=== PATIENT | male | born 1965 | race Caucasian/White ===

== ENCOUNTER 2017-04-12 15:39 | Emergency (ER) | payer SELFPAY ==
[2017-04-12 15:47] VITALS: BP 155/85; PULSE 98; TEMP 99; BMI 25.0
[2017-04-12] MEDS ORDERED: DIPHTH,PERTUSS(ACELL),TET 0.5 ML DISP.SYRIN IM ONE (16:55)
[2017-04-12] MEDS ORDERED: LIDOCAINE 1%/EPI 1:100000 (20 ML MULTI DOSE VIAL) ONE (16:56)
--- NOTE | 2017-04-12 17:17 | PDOC ---
History of Present Illness - General Chief Complaint: Injury Stated Complaint: INJURY Time Seen by Provider: 04/12/17 16:42 - History of Present Illness Initial Comments: 04/12/17 17:15 CHIEF COMPLAINT: laceration to R arm HISTORY OF PRESENT ILLNESS: 51 yo M with hx of IDDM presents to fast track with laceration to R forearm. Patient states "I was working and accidentally cut myself with a tool." Patient does not remember the last time he received a tetanus shot. No recent travel or sick contacts. PAST MEDICAL HISTORY: diabetes FAMILY HISTORY: Denies SOCIAL HISTORY: Denies tobacco, alcohol, illicit drug use. SURGICAL HISTORY: Denies ALLERGIES: No known drug allergies REVIEW OF SYSTEMS General/Constitutional: Denies fever or chills. Gastrointestinal: Denies nausea, vomiting, diarrhea. Musculoskeletal: Denies joint or muscle swelling or pain. Denies neck or back pain. Skin: laceration to R arm. PHYSICAL EXAM General Appearance: Well-appearing, appropriately dressed. No apparent distress. HEENT: EOMI, PERRLA. No photophobia, scleral icterus. Respiratory/Chest: Lungs CTAB. Cardiovascular: RRR. S1, S2. Musculoskeletal/Extremities: Laceration to volar aspect of R forearm, no tendon involvement, patient with FROM of wrist and fingers. Normal inspection. FROM of all extremities, normal capillary refill. Pelvis Stable. No CVA tenderness. No tenderness to extremities, pedal edema, swelling, erythema or deformity. Integumentary: Appropriate color, dry, warm. No cyanosis, erythema, jaundice or rash Neurologic: aquatics instructor II-XII intact. Fully oriented, alert. Appropriate mood/affect. Motor strength 5/5. No appreciable EOM palsy, facial droop or sensory deficit. Past History - Past Medical History Allergies/Adverse Reactions: Allergies Allergy/AdvReac Type Severity Reaction Status Date / Time No Known Allergies Allergy Verified 04/12/17 15:46 Home Medications: Ambulatory Orders Sulfamethoxazole/Trimethoprim [Bactrim Ds -] 1 tab PO BID #14 tablet 04/12/17 Diabetes: Yes HTN: Yes (not on meds) - Suicide/Smoking/Psychosocial Hx Smoking History: Never smoked Information on smoking cessation initiated: No Hx Alcohol Use: No Drug/Substance Use Hx: No Substance Use Type: None *Physical Exam - Vital Signs Last Vital Signs Temp Pulse Resp BP Pulse Ox 99 F 98 H 18 155/85 99 04/12/17 15:45 04/12/17 15:45 04/12/17 15:45 04/12/17 15:45 04/12/17 15:45 Procedures - Consent Consent obtained: Verbal - Laceration/Wound Repair Right Volar Arm Wound Length: to 2.5 cm Wound Explored: clean, no foreign body present Wound's Depth, Shape: superficial, linear Irrigated w/ Saline: Yes Betadine Prep: Yes Anesthesia: 1% Lidocaine w/ Epi Amount of Anesthetic (ccs): 2 Wound Repaired With: Sutures Suture Size/Type: 5:0 Number of Sutures: 3 Layer Closure: No Sterile Dressing Applied: Yes (bacitracin, kerlix dressing) Medical Decision Making - Medical Decision Making 04/12/17 17:19 51 yo M with hx of IDDM presents to fast track with laceration to R forearm -tdap -lac repair (see procedure note) keflex rx sent to pharm for prophylaxis as patient is diabetic post lac repair instructions given, advised pt to return in 10 days for suture removal and of signs and symptoms for return to ER *DC/Admit/Observation/Transfer Diagnosis at time of Disposition: Laceration - Discharge Dispostion Disposition: HOME Condition at time of disposition: Stable Admit: No - Prescriptions Prescriptions: Sulfamethoxazole/Trimethoprim [Bactrim Ds -] 1 tab PO BID #14 tablet - Patient Instructions Printed Discharge Instructions: DI for Laceration Repair Additional Instructions: Please take medication as prescribed. Please keep your wound clean and dry for the next 24 hours. Afterwards you may wash with mild soap and water. If you develop any redness, swelling, warmth, or pain to your wound, or you develop any fever, chills, vomiting, diarrhea, or any new or worsening symptoms, please return to the ER. Por favor, tome los medicamentos segn lo prescrito. Mantenga la herida limpia y seca por las siguientes 24 horas. Despus puede lavarse con jabn suave y agua. Si desarrolla enrojecimiento, hinchazn, calor o dolor en la herida, o si presenta fiebre, escalofros, vmitos, diarrea o cualquier sntoma nuevo o que empeora, por favor regrese a la symone de emergencias. Print Language: TUNISIAN
== END 2017-04-12 17:28 | disposition home or self-care (01) ==
LOC: JERFT 15:39
PROC: 3E0234Z Introduction of Serum, Toxoid and Vaccine into Muscle, Percutaneous Approach (ICD-10-PCS; principal; 2017-04-12)
PROC: 0HQBXZZ Repair Right Upper Arm Skin, External Approach (ICD-10-PCS; 2017-04-12)
DX: S51.811A Laceration without foreign body of right forearm, initial encounter (principal); E11.9 Type 2 diabetes mellitus without complications; W27.8XXA Contact with other nonpowered hand tool, initial encounter; Y93.89 Activity, other specified; Y92.9 Unspecified place or not applicable; Y99.0 Civilian activity done for income or pay
CPT/HCPCS: 90715; 99281-25

== ENCOUNTER 2017-04-26 18:55 | Emergency (ER) | payer SELFPAY ==
[2017-04-26 19:19] VITALS: BP 149/86; PULSE 74; TEMP 98.2; BMI 23.3
--- NOTE | 2017-04-26 19:50 | PDOC ---
Suture Removal/Wound Check HPI - History of Present Illness Chief Complaint: Suture/Staple Removal(Here) Stated Complaint: SUTURE REMOVAL Time Seen by Provider: 04/26/17 19:48 History Source: Yes: Patient Exam Limitations: Yes: No Limitations [facility] Date of Last ED visit: 04/12/17 - Previous ED Treatment Type of procedure performed on last visit: Yes: Laceration Repair (right inner forearm with 3 simple sutures) Tetanus Immunization: Yes: Up to Date Past History - Past Medical History Allergies/Adverse Reactions: Allergies Allergy/AdvReac Type Severity Reaction Status Date / Time No Known Allergies Allergy Verified 04/26/17 19:16 Home Medications: Ambulatory Orders NK [No Known Home Medication] 04/26/17 Diabetes: Yes HTN: Yes (not on meds) - Suicide/Smoking/Psychosocial Hx Smoking History: Never smoked Hx Alcohol Use: No Drug/Substance Use Hx: No Substance Use Type: None Suture Removal/Wound Check PE - Physical Exam Laceration/Wound Check Symptoms: reports: None Comments: 04/26/17 19:49 right inner forearm with 3 simple sutures CDI well healed *Review of Systems - Review of Systems Able to Perform ROS?: Yes Constitutional: No: Symptoms Reported HEENTM: No: Symptoms Reported Respiratory: No: Symptoms reported Cardiac (ROS): No: Symptoms Reported ABD/GI: No: Symptoms Reported Integumentary: Yes: Symptoms Reported Procedures - Additional Procedures Progress: 04/26/17 19:49 3 simple interrupted sutures removed well healed well approximated Medical Decision Making - Medical Decision Making 04/26/17 19:49 suture removal right inner forearm *DC/Admit/Observation/Transfer Diagnosis at time of Disposition: Visit for suture removal - Discharge Dispostion Disposition: HOME Condition at time of disposition: Improved - Patient Instructions Printed Discharge Instructions: DI for Suture Removal Additional Instructions: you may resume regular activity and care
== END 2017-04-26 19:50 | disposition home or self-care (01) ==
LOC: JERFT 18:55
DX: Z48.02 Encounter for removal of sutures (principal)
CPT/HCPCS: 99281-25

== ENCOUNTER 2018-04-20 15:00 | Emergency (ER) | payer OTHER ==
[2018-04-20 15:07] VITALS: BP 167/95; PULSE 108; TEMP 98.8; BMI 24.2
[2018-04-20] MEDS ORDERED: diphenhydrAMINE HCL 25 MG CAPSULE (FP) PO ONE ×2 (15:41→15:44)
--- NOTE | 2018-04-20 15:45 | PDOC ---
History of Present Illness - General Chief Complaint: Rash Stated Complaint: ITCHING RASH Time Seen by Provider: 04/20/18 15:31 History Source: Patient Exam Limitations: No Limitations - History of Present Illness Initial Comments: 04/20/18 15:41 HISTORY OF PRESENT ILLNESS: 52-year-old male past medical history of IDDM presents emergency departments with pruritus to his back for the past 3-4 weeks. Patient states constant but has not taken anything or seen his primary doctor for evaluation. He denies any change in soaps, shampoos, lotions, medications. Patient denies any rashes, fevers. No recent travel or sick contacts. PAST MEDICAL HISTORY: IDDM SURGICAL HISTORY: Denies ALLERGIES: No known drug allergies REVIEW OF SYSTEMS General/Constitutional: Denies fever or chills. Denies weakness, weight change. HEENT: Denies change in vision. Denies ear pain or discharge. Denies sore throat. Cardiovascular: Denies chest pain or shortness of breath. Respiratory: Denies cough, wheezing, or hemoptysis. Gastrointestinal: Denies nausea, vomiting, diarrhea or constipation. Denies rectal bleeding. Genitourinary: Denies dysuria, frequency, or change in urination. Musculoskeletal: Denies joint or muscle swelling or pain. Denies neck or back pain. Skin and breasts: Itching to back. Neurologic: Denies headache, vertigo, loss of consciousness, or loss of sensation. Psychiatric: Denies depression or anxiety. Endocrine: Denies increased thirst. Denies abnormal weight change. Hematologic/Lymphatic: Denies anemia, easy bleeding, or history of blood clots. Allergic/Immunologic: Denies hives or skin allergy. Denies latex allergy. PHYSICAL EXAM General Appearance: Well-appearing, appropriately dressed. No apparent distress , no intoxication. HEENT: EOMI, PERRLA, normal ENT inspection, normal voice, TMs normal, pharynx normal. No conjunctival pallor. No photophobia, scleral icterus. Neck: Supple. Trachea midline. No tenderness, rigidity, carotid bruit, stridor , lymphadenopathy, or thyromegaly. Respiratory/Chest: Lungs CTAB. No shortness of breath, chest tenderness, respiratory distress, accessory muscle use. No crackles, rales, rhonchi, stridor , wheezing, dullness Cardiovascular: RRR. S1, S2. No JVD, murmur, bradycardia, tachycardia. Vascular Pulses: Dorsalis-Pedis (R): 2+, Dorsalis-Pedis (L): 2+ Gastrointestinal/Abdominal: Normal bowel sounds. Abdomen soft, non-distended. No tenderness or rebound tenderness. No organomegaly, pulsatile mass, guarding, hernia, hepatomegaly, splenomegaly. Lymphatic: No adenopathy, tenderness. Musculoskeletal/Extremities: Normal inspection. FROM of all extremities, normal capillary refill. Pelvis Stable. No CVA tenderness. No tenderness to extremities, pedal edema, swelling, erythema or deformity. Integumentary: No rash present over the back. Patient appears slightly jaundiced but may be normal skin tone. Consistent throughout his body patient denies any change. Neurologic: recapper II-XII intact. Fully oriented, alert. Appropriate mood/affect. Motor strength 5/5. No appreciable EOM palsy, facial droop or sensory deficit. Past History - Past Medical History Allergies/Adverse Reactions: Allergies Allergy/AdvReac Type Severity Reaction Status Date / Time No Known Allergies Allergy Verified 04/26/17 19:16 Home Medications: Ambulatory Orders NK [No Known Home Medication] 04/26/17 Canagliflozin [Invokana] 100 mg PO ASDIR 04/20/18 COPD: No Diabetes: Yes HTN: Yes (not on meds) - Immunization History Immunization Up to Date: Yes - Suicide/Smoking/Psychosocial Hx Smoking History: Never smoked Information on smoking cessation initiated: No Hx Alcohol Use: No Drug/Substance Use Hx: No Substance Use Type: None *Physical Exam - Vital Signs Last Vital Signs Temp Pulse Resp BP Pulse Ox 98.8 F 108 H 16 167/95 99 04/20/18 15:04 04/20/18 15:04 04/20/18 15:04 04/20/18 15:04 04/20/18 15:04 ED Treatment Course - LABORATORY CBC & Chemistry Diagram: 04/20/18 15:48 04/20/18 15:48 Medical Decision Making - Medical Decision Making 04/20/18 15:45 A/P: 52-year-old male with pruritus to back Questionable mild jaundice with consistence home throughout his body-patient denies any change in appearance of his skin color No scleral icterus This patient was taken elbow, and insulin suspicion for uremia exists Labs, urine, Benadryl, reassess 04/20/18 18:36 Patient admits to drinking regular Pepsi-Cola prior to evaluation emergency department. Repeat fingerstick after receiving 1 L of fluids and 6 units of insulin was 354. Laboratory testing reveals patient's kidney function is within normal limits but does have a mildly elevated alkaline phosphatase. Patient is no longer itchy after receiving Benadryl. I will discharge the patient home to follow-up with his primary doctor. *DC/Admit/Observation/Transfer Diagnosis at time of Disposition: Hyperglycemia, Pruritus - Discharge Dispostion Disposition: HOME Condition at time of disposition: Stable Decision to Admit order: No - Referrals Referrals: Kingsley Coto [Primary Care Provider] - - Patient Instructions Additional Instructions: Make an appointment for evaluation with her primary doctor for possible change in your diabetes regimen. Avoid drinking regular sodas. Take Benadryl as needed for itching. Return to emergency department for any concerns. - Post Discharge Activity
[2018-04-20 16:14] LABS: BASO % 0.5 % (0-2.0); EOS % 1.6 % (0-4.5); HEMOGLOBIN 13.9 GM/dL (11.7-16.9); LYMPH % 34.7 % (8-40); MCH 31.1 pg (25.7-33.7); MCHC 33.8 g/dl (32.0-35.9); MEAN CELL VOLUME 92.2 fl (80-96); MEAN PLT VOLUME 10.6 fl (7.5-11.1); NEUT % 54.2 % (42.8-82.8); PLATELET COUNT 169 K/MM3 (134-434); RBC 4.45 M/mm3 (4.00-5.60); RDW 14.8 % (11.9-15.9); WHITE BLOOD COUNT 3.8 K/mm3 (4.0-10.0)
[2018-04-20 16:22] LABS: URINE APPEARANCE CLEAR; URINE BILIRUBIN NEGATIVE (<2.0 mg/dL); URINE COLOR COLORLESS; URINE GLUCOSE (UA) 3+ (NEGATIVE); URINE KETONE NEGATIVE (NEGATIVE); URINE LEUK ESTERASE NEGATIVE (NEGATIVE); URINE NITRITE NEGATIVE (NEGATIVE); URINE PROTEIN NEGATIVE (NEGATIVE); URINE UROBILINOGEN NEGATIVE mg/dL (0.2-1.0)
[2018-04-20 16:45] LABS: ALK PHOS 195 U/L (45-117); ANION GAP 9 MMOL/L (8-16); BILIRUBIN,TOTAL 0.3 mg/dL (0.2-1); BLOOD UREA NITROGEN 19 mg/dL (7-18); CALCIUM 9.4 mg/dL (8.5-10.1); CHLORIDE 100 mmol/L (98-107); CO2 27 mmol/L (21-32); CREATININE 1.1 mg/dL (0.55-1.3); POTASSIUM 4.1 mmol/L (3.5-5.1); SGOT/AST 22 U/L (15-37); SGPT/ALT 56 U/L (13-61); SODIUM 136 mmol/L (136-145); TOT PROT 8.1 g/dl (6.4-8.2)
[2018-04-20 16:49] LABS: GLUCOSE,RANDOM 523 mg/dL (74-106)
[2018-04-20] MEDS ORDERED: SODIUM CHLORIDE 1,000 ML IV STA (16:59)
[2018-04-20] MEDS ORDERED: INSULIN REGULAR HUMAN 100 UNITS/ML *VIAL SQ ONE (16:59)
[2018-04-20] MEDS ORDERED: INSULIN REGULAR HUMAN 100 UNITS/ML *VIAL ONE (17:23)
== END 2018-04-20 18:43 | disposition home or self-care (01) ==
LOC: JERFT 15:00
PROC: 3E0337Z Introduction of Electrolytic and Water Balance Substance into Peripheral Vein, Percutaneous Approach (ICD-10-PCS; principal; 2018-04-20)
PROC: 3E013VG Introduction of Insulin into Subcutaneous Tissue, Percutaneous Approach (ICD-10-PCS; 2018-04-20)
DX: E11.65 Type 2 diabetes mellitus with hyperglycemia (principal); Z79.84 Long term (current) use of oral hypoglycemic drugs; L29.8 Other pruritus
CPT/HCPCS: 36415; 80053; 81003; 82962; 85025; 96360; 96372; 99281-25; J7030

== ENCOUNTER 2019-10-14 02:56 | Inpatient (IN) | payer OTHER ==
[2019-10-14 03:37] LABS: BASO % 0.3 % (0-2.0); HEMATOCRIT 45.8 % (35.4-49); HEMOGLOBIN 15.1 GM/dL (11.7-16.9); LYMPH % 9.5 % (8-40); MCH 30.2 pg (25.7-33.7); MCHC 32.9 g/dl (32.0-35.9); MEAN CELL VOLUME 91.8 fl (80-96); MEAN PLT VOLUME 10.2 fl (7.5-11.1); MONO % 9.5 % (3.8-10.2); NEUT % 80.7 % (42.8-82.8); PLATELET COUNT 176 K/MM3 (134-434); RBC 4.99 M/mm3 (4.00-5.60); RDW 13.9 % (11.9-15.9); WHITE BLOOD COUNT 13.6 K/mm3 (4.0-10.0)
[2019-10-14 03:58] LABS: VENOUS PC02 24.1 mmHg (38-52)
[2019-10-14 03:59] LABS: VENOUS PO2 < 49 mmHg (28-48)
[2019-10-14 04:00] LABS: VENOUS BASE EXCESS -25.2 mmol/L (-2-2)
[2019-10-14 04:15] LABS: ALBUMIN 3.3 g/dl (3.4-5.0); BILIRUBIN,TOTAL 0.6 mg/dL (0.2-1); BLOOD UREA NITROGEN 12.7 mg/dL (7-18); CREATININE 1.3 mg/dL (0.55-1.3); POTASSIUM 4.1 mmol/L (3.5-5.1); TOT PROT 8.6 g/dl (6.4-8.2)
[2019-10-14 04:29] LABS: VENOUS PH 6.97 (7.31-7.41)
[2019-10-14] MEDS ORDERED: SODIUM CHLORIDE 0.9% 500 ML INFUS.BAG IV ONE ×2 (04:32)
[2019-10-14] MEDS ORDERED: INSULIN REGULAR HUMAN 100 UNITS/ML *VIAL IVPUSH ONE (04:34)
[2019-10-14] MEDS ORDERED: INSULIN REGULAR 100 UNITS in SODIUM CHLORIDE 99 ML IVPB SCH (04:45)
[2019-10-14] MEDS ORDERED: ONDANSETRON 4 MG/2 ML VIAL ONE (05:19)
[2019-10-14] MEDS: SODIUM CHLORIDE 0.45%/POT 20 MEQ/1,000 ML INFUS.BAG IV SCH (05:23)
[2019-10-14 05:29] LABS: EPI CELLS 20 /uL (0-25.1); HYALINE CASTS 6 /uL (0-3.1); URINE APPEARANCE CLEAR; URINE BACTERIA 13 /uL (0-1359); URINE BILIRUBIN NEGATIVE (NEGATIVE); URINE COLOR YELLOW; URINE GLUCOSE (UA) 3+ (NEGATIVE); URINE KETONE 4+ (NEGATIVE); URINE LEUK ESTERASE NEGATIVE (NEGATIVE); URINE NITRITE NEGATIVE (NEGATIVE); URINE PROTEIN 2+ (NEGATIVE); URINE UROBILINOGEN 0.2 mg/dL (0.2-1.0); URINE WBC 4 /uL (0-25.8)
[2019-10-14 05:33] LABS: URINE RBC 5 /uL (0-23.9)
[2019-10-14 06:03] LABS: MAGNESIUM 2.2 mg/dL (1.8-2.4)
[2019-10-14] MEDS: SODIUM CHLORIDE 1,000 ML with POTASSIUM CHLORIDE 20 MEQ IVPB SCH (08:21)
[2019-10-14] MEDS: ENOXAPARIN NA (PORCINE) 40 MG/0.4 ML DISP.SYRIN SQ SCH (11:23)
[2019-10-14 12:25] LABS: BLOOD UREA NITROGEN 12.4 mg/dL (7-18)
[2019-10-14 13:00] LABS: POTASSIUM 2.8 mmol/L (3.5-5.1)
[2019-10-14] MEDS ORDERED: POTASSIUM CHLORIDE TABS 20 MEQ TABLET.ER (FP) PO ONE ×2 (13:26→13:36)
[2019-10-14 14:22] LABS: BLOOD UREA NITROGEN 12.8 mg/dL (7-18); CALCIUM 8.4 mg/dL (8.5-10.1); CREATININE 0.8 mg/dL (0.55-1.3); POTASSIUM 3.5 mmol/L (3.5-5.1)
[2019-10-14] MEDS: CEFTRIAXONE 1 GM in DEXTROSE 5%-WATER - 50 ML IVPB SCH (15:14)
[2019-10-14] MEDS ORDERED: CEFTRIAXONE 1 GM/50 ML BAG ONE (15:17)
[2019-10-14 15:44] LABS: BLOOD UREA NITROGEN 12.1 mg/dL (7-18); CALCIUM 8.1 mg/dL (8.5-10.1); CREATININE 0.8 mg/dL (0.55-1.3); POTASSIUM 3.4 mmol/L (3.5-5.1)
[2019-10-14 20:42] VITALS: BMI 25.2
[2019-10-14] MEDS: INSULIN SLIDING SCALE (NOVOLOG) 1 VIAL SQ SCH (21:14)
[2019-10-14] MEDS: HYDROXYCHLOROQUINE SO4 200 MG TABLET (FP) PO SCH (21:15)
[2019-10-14] MEDS ORDERED: CHLORHEXIDINE GLUCONATE 4% CLEANSER FOR DECOLONIZATION TP SCH (22:00)
[2019-10-15] MEDS: INSULIN SLIDING SCALE (NOVOLOG) 1 VIAL SQ SCH ×4 (06:00→21:24)
[2019-10-15] MEDS: SODIUM CHLORIDE 0.45%/POT 20 MEQ/1,000 ML INFUS.BAG IV SCH (06:01)
[2019-10-15] MEDS: SODIUM CHLORIDE 1,000 ML with POTASSIUM CHLORIDE 20 MEQ IVPB SCH (06:01)
[2019-10-15] MEDS ORDERED: DEXTROSE 5%-WATER - 50 ML IVPB ONE (08:55)
[2019-10-15] MEDS ORDERED: cefTRIAXone SODIUM 1 GM VIAL ONE (08:55)
[2019-10-15 09:28] LABS: BASO % 0.1 % (0-2.0); HEMATOCRIT 37.2 % (35.4-49); HEMOGLOBIN 12.8 GM/dL (11.7-16.9); LYMPH % 5.2 % (8-40); MCH 29.9 pg (25.7-33.7); MCHC 34.5 g/dl (32.0-35.9); MEAN CELL VOLUME 86.6 fl (80-96); MONO % 6.5 % (3.8-10.2); NEUT % 88.2 % (42.8-82.8); PLATELET COUNT 141 K/MM3 (134-434); RDW 13.4 % (11.9-15.9); WHITE BLOOD COUNT 9.5 K/mm3 (4.0-10.0)
[2019-10-15] MEDS: ENOXAPARIN NA (PORCINE) 40 MG/0.4 ML DISP.SYRIN SQ SCH (09:47)
[2019-10-15] MEDS: HYDROXYCHLOROQUINE SO4 200 MG TABLET (FP) PO SCH ×2 (09:48→21:25)
[2019-10-15] MEDS: CEFTRIAXONE 1 GM in DEXTROSE 5%-WATER - 50 ML IVPB SCH (09:48)
[2019-10-15] MEDS: ZINC SULFATE 220 MG CAPSULE (FP) PO SCH (09:48)
[2019-10-15 10:14] LABS: ALBUMIN 2.4 g/dl (3.4-5.0); BILIRUBIN,TOTAL 0.3 mg/dL (0.2-1); BLOOD UREA NITROGEN 8.5 mg/dL (7-18); CALCIUM 8.3 mg/dL (8.5-10.1); CREATININE 0.8 mg/dL (0.55-1.3); MAGNESIUM 2.3 mg/dL (1.8-2.4); TOT PROT 6.6 g/dl (6.4-8.2)
[2019-10-15 10:35] LABS: PHOSPHOROUS 0.8 mg/dL (2.5-4.9); POTASSIUM 2.9 mmol/L (3.5-5.1)
[2019-10-15] MEDS ORDERED: NAPH,MB-DB/K PH,MBDB POWDER PACKET PO ONE ×2 (10:36→11:00)
[2019-10-15] MEDS ORDERED: INSULIN (NOVOLOG) ASPART 100 UNITS/ML 10ML VIAL ONE ×3 (10:38→21:01)
[2019-10-15] MEDS: INSULIN (LEVEMIR) 100 UNITS/ML UNITS SQ SCH (10:56)
[2019-10-15] MEDS: KCL 10 MEQ IVPB 10 MEQ/100 ML INFUS.BAG IVPB SCH ×3 (11:02→14:44)
[2019-10-15] MEDS: MUPIROCIN 2% TOPICAL OINTMENT FOR DECOLONIZATION NS SCH ×2 (12:01→12:02)
[2019-10-15] MEDS ORDERED: KCL 10 MEQ IVPB 10 MEQ/100 ML INFUS.BAG IVPB SCH (14:30)
[2019-10-15] MEDS ORDERED: INSULIN (LEVEMIR) 100 UNITS/ML UNITS SQ ONE (18:45)
[2019-10-15] MEDS: NAPH,MB-DB/K PH,MBDB POWDER PACKET PO SCH (21:24)
[2019-10-16] MEDS: INSULIN (LEVEMIR) 100 UNITS/ML UNITS SQ SCH (06:29)
[2019-10-16] MEDS: NAPH,MB-DB/K PH,MBDB POWDER PACKET PO SCH ×3 (06:30→21:46)
[2019-10-16] MEDS: INSULIN SLIDING SCALE (NOVOLOG) 1 VIAL SQ SCH ×4 (06:32→21:52)
[2019-10-16] MEDS ORDERED: INSULIN (LEVEMIR) 100 UNITS/ML UNITS SQ ONE (06:55)
[2019-10-16 08:33] LABS: ALBUMIN 2.3 g/dl (3.4-5.0); BILIRUBIN,TOTAL 0.5 mg/dL (0.2-1); BLOOD UREA NITROGEN 7.6 mg/dL (7-18); CALCIUM 8.1 mg/dL (8.5-10.1); CREATININE 0.6 mg/dL (0.55-1.3); MAGNESIUM 2.4 mg/dL (1.8-2.4); PHOSPHOROUS 1.9 mg/dL (2.5-4.9); TOT PROT 6.7 g/dl (6.4-8.2)
[2019-10-16] MEDS ORDERED: cefTRIAXone SODIUM 1 GM VIAL ONE (08:41)
[2019-10-16] MEDS ORDERED: DEXTROSE 5%-WATER - 50 ML IVPB ONE (08:41)
[2019-10-16 08:55] LABS: POTASSIUM 2.6 mmol/L (3.5-5.1)
[2019-10-16] MEDS: ZINC SULFATE 220 MG CAPSULE (FP) PO SCH (10:05)
[2019-10-16] MEDS: ENOXAPARIN NA (PORCINE) 40 MG/0.4 ML DISP.SYRIN SQ SCH (10:05)
[2019-10-16] MEDS: HYDROXYCHLOROQUINE SO4 200 MG TABLET (FP) PO SCH ×2 (10:06→21:46)
[2019-10-16] MEDS: CEFTRIAXONE 1 GM in DEXTROSE 5%-WATER - 50 ML IVPB SCH (10:06)
[2019-10-16] MEDS: KCL 10 MEQ IVPB 10 MEQ/100 ML INFUS.BAG IVPB SCH ×3 (10:49→13:11)
[2019-10-16] MEDS ORDERED: guaiFENesin/D-METHORPHAN HB 10 ML UNIT-DOSE CUPS PO PRN (13:06)
[2019-10-16] MEDS ORDERED: ACETAMINOPHEN 325 MG TABLET (FP) PO PRN (13:09)
[2019-10-16 18:12] LABS: BLOOD UREA NITROGEN 8.1 mg/dL (7-18); CALCIUM 8.4 mg/dL (8.5-10.1); CREATININE 0.5 mg/dL (0.55-1.3)
[2019-10-16 18:13] LABS: POTASSIUM 2.9 mmol/L (3.5-5.1)
[2019-10-16] MEDS ORDERED: POTASSIUM CHLORIDE TABS 20 MEQ TABLET.ER (FP) PO ONE (18:17)
[2019-10-16] MEDS: ASCORBIC ACID 500 MG TABLET (FP) PO SCH (21:46)
[2019-10-17] MEDS: INSULIN (LEVEMIR) 100 UNITS/ML UNITS SQ SCH (06:16)
[2019-10-17] MEDS: NAPH,MB-DB/K PH,MBDB POWDER PACKET PO SCH ×3 (06:16→21:20)
[2019-10-17] MEDS: INSULIN SLIDING SCALE (NOVOLOG) 1 VIAL SQ SCH ×4 (06:20→21:19)
[2019-10-17 09:45] LABS: CALCIUM 8.5 mg/dL (8.5-10.1); CREATININE 0.5 mg/dL (0.55-1.3)
[2019-10-17] MEDS ORDERED: cefTRIAXone SODIUM 1 GM VIAL ONE (10:14)
[2019-10-17] MEDS ORDERED: DEXTROSE 5%-WATER - 50 ML IVPB ONE (10:15)
[2019-10-17] MEDS: ENOXAPARIN NA (PORCINE) 40 MG/0.4 ML DISP.SYRIN SQ SCH (10:23)
[2019-10-17] MEDS: ASCORBIC ACID 500 MG TABLET (FP) PO SCH ×2 (10:23→21:20)
[2019-10-17] MEDS: CHOLECALCIFEROL (VIT D3) 1,000 UNIT (25 MCG) TABLET PO SCH (10:23)
[2019-10-17] MEDS: CEFTRIAXONE 1 GM in DEXTROSE 5%-WATER - 50 ML IVPB SCH (10:23)
[2019-10-17] MEDS: ZINC SULFATE 220 MG CAPSULE (FP) PO SCH (10:24)
[2019-10-17] MEDS: HYDROXYCHLOROQUINE SO4 200 MG TABLET (FP) PO SCH ×2 (10:24→21:21)
[2019-10-17 10:26] LABS: POTASSIUM 2.9 mmol/L (3.5-5.1)
[2019-10-17] MEDS: SODIUM CHLORIDE 0.9%/KCL 20 MEQ/1,000 ML INFUS.BAG IV SCH (12:15)
[2019-10-17] MEDS: KCL 10 MEQ IVPB 10 MEQ/100 ML INFUS.BAG IVPB SCH ×3 (12:17→17:17)
[2019-10-18] MEDS: NAPH,MB-DB/K PH,MBDB POWDER PACKET PO SCH ×3 (05:56→21:51)
[2019-10-18] MEDS: INSULIN (LEVEMIR) 100 UNITS/ML UNITS SQ SCH (06:00)
[2019-10-18] MEDS: INSULIN SLIDING SCALE (NOVOLOG) 1 VIAL SQ SCH ×4 (06:00→21:58)
[2019-10-18] MEDS: ASCORBIC ACID 500 MG TABLET (FP) PO SCH ×2 (10:01→21:51)
[2019-10-18] MEDS: ENOXAPARIN NA (PORCINE) 40 MG/0.4 ML DISP.SYRIN SQ SCH (10:01)
[2019-10-18] MEDS: ZINC SULFATE 220 MG CAPSULE (FP) PO SCH (10:01)
[2019-10-18] MEDS: HYDROXYCHLOROQUINE SO4 200 MG TABLET (FP) PO SCH ×2 (10:01→21:50)
[2019-10-18] MEDS: CHOLECALCIFEROL (VIT D3) 1,000 UNIT (25 MCG) TABLET PO SCH (10:01)
[2019-10-18] MEDS: SODIUM CHLORIDE 0.9%/KCL 20 MEQ/1,000 ML INFUS.BAG IV SCH (11:51)
[2019-10-18 11:52] LABS: BLOOD UREA NITROGEN 5.6 mg/dL (7-18); CALCIUM 7.9 mg/dL (8.5-10.1); CREATININE 0.5 mg/dL (0.55-1.3); POTASSIUM 3.1 mmol/L (3.5-5.1)
[2019-10-18] MEDS ORDERED: POTASSIUM CHLORIDE TABS 20 MEQ TABLET.ER (FP) PO ONE (12:12)
[2019-10-19] MEDS: NAPH,MB-DB/K PH,MBDB POWDER PACKET PO SCH (06:26)
[2019-10-19] MEDS: INSULIN (LEVEMIR) 100 UNITS/ML UNITS SQ SCH ×2 (06:26→12:55)
[2019-10-19] MEDS: INSULIN SLIDING SCALE (NOVOLOG) 1 VIAL SQ SCH ×4 (06:26→21:36)
[2019-10-19 09:27] LABS: BASO % 0.4 % (0-2.0); EOS % 0.1 % (0-4.5); HEMATOCRIT 36.5 % (35.4-49); HEMOGLOBIN 12.6 GM/dL (11.7-16.9); LYMPH % 13.1 % (8-40); MCH 29.7 pg (25.7-33.7); MCHC 34.4 g/dl (32.0-35.9); MEAN CELL VOLUME 86.3 fl (80-96); MEAN PLT VOLUME 8.6 fl (7.5-11.1); MONO % 17.3 % (3.8-10.2); NEUT % 69.1 % (42.8-82.8); PLATELET COUNT 196 K/MM3 (134-434); RBC 4.23 M/mm3 (4.00-5.60); RDW 13.3 % (11.9-15.9)
[2019-10-19 09:56] LABS: BLOOD UREA NITROGEN 5.4 mg/dL (7-18); CALCIUM 8.3 mg/dL (8.5-10.1); CREATININE 0.5 mg/dL (0.55-1.3); MAGNESIUM 2.4 mg/dL (1.8-2.4); PHOSPHOROUS 3.4 mg/dL (2.5-4.9); POTASSIUM 3.2 mmol/L (3.5-5.1)
[2019-10-19] MEDS: ASCORBIC ACID 500 MG TABLET (FP) PO SCH ×2 (11:41→21:36)
[2019-10-19] MEDS: ZINC SULFATE 220 MG CAPSULE (FP) PO SCH (11:42)
[2019-10-19] MEDS: CHOLECALCIFEROL (VIT D3) 1,000 UNIT (25 MCG) TABLET PO SCH (11:42)
[2019-10-19] MEDS: HYDROXYCHLOROQUINE SO4 200 MG TABLET (FP) PO SCH (11:42)
[2019-10-19] MEDS: ENOXAPARIN NA (PORCINE) 40 MG/0.4 ML DISP.SYRIN SQ SCH (11:42)
[2019-10-19] MEDS: POTASSIUM CHLORIDE TABS 20 MEQ TABLET.ER (FP) PO SCH (11:45)
[2019-10-20] MEDS: INSULIN (LEVEMIR) 100 UNITS/ML UNITS SQ SCH (06:25)
[2019-10-20] MEDS: INSULIN SLIDING SCALE (NOVOLOG) 1 VIAL SQ SCH ×3 (06:26→16:30)
[2019-10-20] MEDS: CHOLECALCIFEROL (VIT D3) 1,000 UNIT (25 MCG) TABLET PO SCH (10:14)
[2019-10-20] MEDS: POTASSIUM CHLORIDE TABS 20 MEQ TABLET.ER (FP) PO SCH (10:14)
[2019-10-20] MEDS: ZINC SULFATE 220 MG CAPSULE (FP) PO SCH (10:14)
[2019-10-20] MEDS: ENOXAPARIN NA (PORCINE) 40 MG/0.4 ML DISP.SYRIN SQ SCH (10:15)
[2019-10-20] MEDS: ASCORBIC ACID 500 MG TABLET (FP) PO SCH (10:15)
[2019-10-20 15:10] VITALS: BP 130/73; PULSE 82; TEMP 97.9
== END 2019-10-20 17:14 | disposition home or self-care (01) | DRG 137 ==
LOC: JER 02:56 → JERBED 04:40 → J8W 18:34
PROVIDERS: ADMIT Internal Medicine; ATTEND Internal Medicine
PROC: 8E0ZXY6 Isolation (ICD-10-PCS; principal; 2019-10-14)
DX: U07.1 COVID-19 (principal); E11.10 Type 2 diabetes mellitus with ketoacidosis without coma; E87.1 Hypo-osmolality and hyponatremia; E87.6 Hypokalemia; Z79.4 Long term (current) use of insulin; Z91.14 Patient's other noncompliance with medication regimen
CPT/HCPCS: 36415; 71045-TC-FY; 80048; 80053; 81003; 82728; 82803; 82962; 83036; 83615; 83735; 84100; 84132; 84443; 85025; 85379; 86140; 87899; 93005; 93010; 99291; J3480; U0002

== ENCOUNTER 2021-03-16 19:17 | Emergency (ER) | payer OTHER ==
[2021-03-16 19:24] VITALS: BP 148/88; PULSE 91; TEMP 97; BMI 24.1
== END 2021-03-16 20:47 | disposition home or self-care (01) ==
LOC: JER 19:17
DX: L97.511 Non-pressure chronic ulcer of other part of right foot limited to breakdown of skin (principal)
CPT/HCPCS: 99281-25

== ENCOUNTER 2021-03-18 10:57 | Emergency (ER) | payer SELFPAY ==
[2021-03-18 11:22] VITALS: BP 153/73; PULSE 90; TEMP 97.7; BMI 23.3
== END 2021-03-18 12:35 | disposition home or self-care (01) ==
LOC: JERFT 10:57
DX: Z48.00 Encounter for change or removal of nonsurgical wound dressing (principal)
CPT/HCPCS: 99281-25

== ENCOUNTER 2023-06-08 14:33 | Inpatient (IN) | payer OTHER ==
[2023-06-08 16:39] LABS: BASO % 0.4 % (0-2.0); EOS % 0.5 % (0-4.5); HEMATOCRIT 37.2 % (35.4-49); HEMOGLOBIN 12.6 GM/dL (11.7-16.9); MCH 29.9 pg (25.7-33.7); MCHC 33.8 g/dl (32.0-35.9); MEAN CELL VOLUME 88.4 fl (80-96); MEAN PLT VOLUME 9.4 fl (7.5-11.1); MONO % 7.7 % (3.8-10.2); NEUT % 68.4 % (42.8-82.8); PLATELET COUNT 232 10^3/uL (134-434); RBC 4.21 M/mm3 (4.00-5.60); RDW 13.2 % (11.9-15.9); WHITE BLOOD COUNT 5.4 K/mm3 (4.0-10.0)
[2023-06-08 16:46] LABS: INR 1.01 (0.83-1.09); PROTHROMBIN TIME (PATIENT) 11.7 SEC (9.7-13.0)
[2023-06-08 16:50] LABS: ACTIVATED PTT 28.6 SECONDS (25.2-36.5)
[2023-06-08 16:58] LABS: POTASSIUM 3.8 mmol/L (3.5-5.1)
[2023-06-08 17:00] LABS: ALBUMIN 3.9 g/dl (3.4-5.0)
[2023-06-08 17:01] LABS: BLOOD UREA NITROGEN 23.6 mg/dL (7-18)
[2023-06-08] MEDS ORDERED: VANCOMYCIN 1 GM PREMIX - 1 GM/200 ML BAG IVPB ONE (17:02)
[2023-06-08] MEDS ORDERED: PIPERACILLIN/TAZOB 4.5 GM 4.5 GM in DEXTROSE 5%-WATER 100 ML IVPB ONE (17:02)
[2023-06-08 17:04] LABS: CREATININE 0.9 mg/dL (0.55-1.3)
[2023-06-08 17:05] LABS: BILIRUBIN,TOTAL 0.4 mg/dL (0.2-1); TOT PROT 7.9 g/dl (6.4-8.2)
[2023-06-08] MEDS ORDERED: VANCOMYCIN 1 GRAM (PRE-DOCKED) 1,000 MG/250 ML BAG IVPB ONE (17:20)
[2023-06-08] MEDS ORDERED: PIPERACILLIN/TAZOB 4.5 GM 4.5 GM/100 ML BAG IVPB ONE (17:20)
[2023-06-08] MEDS ORDERED: VANCOMYCIN 1,000 MG in DEXTROSE 5%-WATER - 250 ML IVPB SCH (18:00)
[2023-06-08] MEDS ORDERED: ACETAMINOPHEN 325 MG TABLET (FP) PO PRN (18:02)
[2023-06-08] MEDS: INSULIN SLIDING SCALE (NOVOLOG) 1 VIAL SQ SCH (21:46)
[2023-06-09 00:23] VITALS: BMI 22.2
[2023-06-09] MEDS: PIPERACILLIN/TAZOB 3.375 GM 3.375 GM in DEXTROSE 5%-WATER - 50 ML IVPB SCH ×4 (02:01→18:26)
[2023-06-09] MEDS ORDERED: VANCOMYCIN/WATER FOR INJ (PEG) 1,000 MG/200 ML BAG IVPB SCH (06:00)
[2023-06-09] MEDS: INSULIN SLIDING SCALE (NOVOLOG) 1 VIAL SQ SCH ×4 (06:20→21:33)
[2023-06-09 09:25] LABS: BASO % 0.4 % (0-2.0); EOS % 1.1 % (0-4.5); HEMATOCRIT 32.9 % (35.4-49); HEMOGLOBIN 11.4 GM/dL (11.7-16.9); LYMPH % 28.9 % (8-40); MCH 30.6 pg (25.7-33.7); MCHC 34.6 g/dl (32.0-35.9); MEAN CELL VOLUME 88.5 fl (80-96); MEAN PLT VOLUME 9.5 fl (7.5-11.1); MONO % 9.9 % (3.8-10.2); NEUT % 59.7 % (42.8-82.8); PLATELET COUNT 208 10^3/uL (134-434); RBC 3.72 M/mm3 (4.00-5.60); RDW 13.3 % (11.9-15.9); WHITE BLOOD COUNT 4.8 K/mm3 (4.0-10.0)
[2023-06-09] MEDS: ENOXAPARIN NA (PORCINE) 40 MG/0.4 ML DISP.SYRIN SQ SCH (09:32)
[2023-06-09 10:15] LABS: ALBUMIN 3.2 g/dl (3.4-5.0); BLOOD UREA NITROGEN 27.3 mg/dL (7-18); MAGNESIUM 2.1 mg/dL (1.8-2.4)
[2023-06-09 10:16] LABS: CALCIUM 8.7 mg/dL (8.5-10.1)
[2023-06-09 10:18] LABS: CREATININE 0.7 mg/dL (0.55-1.3)
[2023-06-09 10:19] LABS: TOT PROT 6.7 g/dl (6.4-8.2)
[2023-06-09 10:23] LABS: BILIRUBIN,TOTAL 0.4 mg/dL (0.2-1)
[2023-06-09] MEDS: VANCOMYCIN/WATER FOR INJ (PEG) 1,000 MG/200 ML BAG IVPB SCH (16:48)
[2023-06-09] MEDS: INSULIN (LEVEMIR) 100 UNITS/ML UNITS SQ SCH (21:33)
[2023-06-10] MEDS: PIPERACILLIN/TAZOB 3.375 GM 3.375 GM in DEXTROSE 5%-WATER - 50 ML IVPB SCH ×3 (01:33→18:23)
[2023-06-10] MEDS: VANCOMYCIN/WATER FOR INJ (PEG) 1,000 MG/200 ML BAG IVPB SCH ×2 (04:39→16:30)
[2023-06-10] MEDS: INSULIN SLIDING SCALE (NOVOLOG) 1 VIAL SQ SCH ×4 (06:10→22:40)
[2023-06-10 08:54] LABS: BASO % 0.4 % (0-2.0); EOS % 2.3 % (0-4.5); HEMATOCRIT 32.7 % (35.4-49); HEMOGLOBIN 11.1 GM/dL (11.7-16.9); LYMPH % 31.6 % (8-40); MCH 30.4 pg (25.7-33.7); MEAN CELL VOLUME 89.3 fl (80-96); MEAN PLT VOLUME 9.4 fl (7.5-11.1); MONO % 10.5 % (3.8-10.2); NEUT % 55.2 % (42.8-82.8); PLATELET COUNT 205 10^3/uL (134-434); RBC 3.66 M/mm3 (4.00-5.60); RDW 13.3 % (11.9-15.9); WHITE BLOOD COUNT 4.2 K/mm3 (4.0-10.0)
[2023-06-10 09:09] LABS: POTASSIUM 3.9 mmol/L (3.5-5.1)
[2023-06-10] MEDS: ENOXAPARIN NA (PORCINE) 40 MG/0.4 ML DISP.SYRIN SQ SCH (09:11)
[2023-06-10 09:13] LABS: ALBUMIN 3.1 g/dl (3.4-5.0); BLOOD UREA NITROGEN 20.7 mg/dL (7-18); CALCIUM 8.5 mg/dL (8.5-10.1)
[2023-06-10 09:16] LABS: CREATININE 0.7 mg/dL (0.55-1.3)
[2023-06-10 09:18] LABS: BILIRUBIN,TOTAL 0.8 mg/dL (0.2-1); TOT PROT 6.4 g/dl (6.4-8.2)
[2023-06-10] MEDS: INSULIN (LEVEMIR) 100 UNITS/ML UNITS SQ SCH (22:40)
[2023-06-10] MEDS: ATORVASTATIN CA 40 MG TABLET (FP) PO SCH (22:40)
[2023-06-11] MEDS: PIPERACILLIN/TAZOB 3.375 GM 3.375 GM in DEXTROSE 5%-WATER - 50 ML IVPB SCH ×3 (01:38→18:15)
[2023-06-11] MEDS: VANCOMYCIN/WATER FOR INJ (PEG) 1,000 MG/200 ML BAG IVPB SCH ×2 (06:23→16:33)
[2023-06-11] MEDS: INSULIN SLIDING SCALE (NOVOLOG) 1 VIAL SQ SCH ×4 (06:25→21:07)
[2023-06-11] MEDS: ENOXAPARIN NA (PORCINE) 40 MG/0.4 ML DISP.SYRIN SQ SCH (09:50)
[2023-06-11] MEDS ORDERED: INSULIN SLIDING SCALE (NOVOLOG) 1 VIAL SQ ONE (21:03)
[2023-06-11] MEDS: ATORVASTATIN CA 40 MG TABLET (FP) PO SCH (21:07)
[2023-06-11] MEDS: INSULIN (LEVEMIR) 100 UNITS/ML UNITS SQ SCH (21:08)
[2023-06-12] MEDS: PIPERACILLIN/TAZOB 3.375 GM 3.375 GM in DEXTROSE 5%-WATER - 50 ML IVPB SCH ×2 (01:40→09:54)
[2023-06-12] MEDS: VANCOMYCIN/WATER FOR INJ (PEG) 1,000 MG/200 ML BAG IVPB SCH (04:45)
[2023-06-12 04:57] VITALS: RESP 18
[2023-06-12] MEDS: INSULIN SLIDING SCALE (NOVOLOG) 1 VIAL SQ SCH ×2 (06:07→11:24)
[2023-06-12] MEDS ORDERED: PIPERACILLIN/TAZOBACTAM 3.375 GM VIAL IVPB ONE (09:51)
[2023-06-12] MEDS: ENOXAPARIN NA (PORCINE) 40 MG/0.4 ML DISP.SYRIN SQ SCH (09:54)
[2023-06-12 13:47] VITALS: BP 134/82; PULSE 81; TEMP 97.8
== END 2023-06-12 17:10 | disposition home or self-care (01) | DRG 380 ==
LOC: JERFT 14:33 → JER 14:33 → JERBED 17:13 → J6S 20:04
PROVIDERS: ADMIT Internal Medicine; ATTEND Internal Medicine
DX: E11.621 Type 2 diabetes mellitus with foot ulcer (principal); L97.519 Non-pressure chronic ulcer of other part of right foot with unspecified severity; E11.65 Type 2 diabetes mellitus with hyperglycemia; L03.031 Cellulitis of right toe; Z79.4 Long term (current) use of insulin; E78.5 Hyperlipidemia, unspecified; D64.9 Anemia, unspecified; E11.40 Type 2 diabetes mellitus with diabetic neuropathy, unspecified
CPT/HCPCS: 36415; 73630-TC-RT-FY; 73721-RT-TC; 80053; 80061; 82962; 83036; 83735; 85025; 85610; 85651; 85730; 86140; 86850; 86900; 86901; 87040; 93005; 93010; 93926-TC; 99285-25

== ENCOUNTER 2023-08-17 16:26 | Inpatient (IN) | payer OTHER ==
[2023-08-17] MEDS ORDERED: PIPERACILLIN/TAZOB 3.375 GM 3.375 GM/50 ML BAG IVPB ONE (17:45)
[2023-08-17] MEDS: PIPERACILLIN/TAZOB 3.375 GM 3.375 GM in DEXTROSE 5%-WATER - 50 ML IVPB ONE (18:12)
[2023-08-17] MEDS ORDERED: VANCOMYCIN 1 GRAM (PRE-DOCKED) 1,000 MG/250 ML BAG IVPB ONE (18:15)
[2023-08-17] MEDS: VANCOMYCIN 1 GM PREMIX - 1 GM/200 ML BAG IVPB ONE (18:21)
[2023-08-17 18:22] LABS: BASO % 0.3 % (0-2.0); EOS % 0.6 % (0-4.5); HEMATOCRIT 33.1 % (35.4-49); HEMOGLOBIN 11.6 GM/dL (11.7-16.9); LYMPH % 25.5 % (8-40); MCH 30.3 pg (25.7-33.7); MCHC 35.1 g/dl (32.0-35.9); MEAN CELL VOLUME 86.3 fl (80-96); MEAN PLT VOLUME 9.3 fl (7.5-11.1); MONO % 8.9 % (3.8-10.2); NEUT % 64.7 % (42.8-82.8); PLATELET COUNT 222 10^3/uL (134-434); RBC 3.83 M/mm3 (4.00-5.60); RDW 13.7 % (11.9-15.9); WHITE BLOOD COUNT 5.4 K/mm3 (4.0-10.0)
[2023-08-17 18:28] LABS: INR 0.9 (0.83-1.09); PROTHROMBIN TIME (PATIENT) 10.4 SEC (9.7-13.0)
[2023-08-17 18:31] LABS: ACTIVATED PTT 26.9 SECONDS (25.2-36.5)
[2023-08-17 18:45] LABS: POTASSIUM 3.9 mmol/L (3.5-5.1)
[2023-08-17 18:48] LABS: CALCIUM 9.3 mg/dL (8.5-10.1)
[2023-08-17 18:49] LABS: ALBUMIN 3.6 g/dl (3.4-5.0); BLOOD UREA NITROGEN 26.7 mg/dL (7-18); MAGNESIUM 2.1 mg/dL (1.8-2.4)
[2023-08-17 18:52] LABS: CREATININE 0.8 mg/dL (0.55-1.3)
[2023-08-17 18:54] LABS: BILIRUBIN,TOTAL 0.4 mg/dL (0.2-1); TOT PROT 7.6 g/dl (6.4-8.2)
[2023-08-17] MEDS ORDERED: ACETAMINOPHEN 325 MG TABLET (FP) PO PRN (21:28)
[2023-08-17] MEDS ORDERED: INSULIN (NOVOLOG) ASPART 100 UNITS/ML 10ML VIAL ONE ×2 (22:00→22:15)
[2023-08-17] MEDS ORDERED: VANCOMYCIN/WATER FOR INJ (PEG) 1,000 MG/200 ML BAG IVPB SCH (22:15)
[2023-08-17] MEDS: INSULIN ASPART SLIDING SCALE (NOVOLOG) 1 VIAL SQ SCH (22:18)
[2023-08-18] MEDS ORDERED: PIPERACILLIN/TAZOB 3.375 GM 3.375 GM/50 ML BAG IVPB ONE ×2 (02:01→09:30)
[2023-08-18] MEDS: PIPERACILLIN/TAZOB 3.375 GM 3.375 GM in DEXTROSE 5%-WATER - 50 ML IVPB SCH ×2 (02:06→11:45)
[2023-08-18 06:47] LABS: BASO % 0.7 % (0-2.0); EOS % 1.6 % (0-4.5); HEMATOCRIT 31.8 % (35.4-49); HEMOGLOBIN 10.9 GM/dL (11.7-16.9); LYMPH % 32.3 % (8-40); MCH 29.9 pg (25.7-33.7); MCHC 34.2 g/dl (32.0-35.9); MEAN CELL VOLUME 87.3 fl (80-96); MEAN PLT VOLUME 9.8 fl (7.5-11.1); MONO % 12.9 % (3.8-10.2); NEUT % 52.5 % (42.8-82.8); PLATELET COUNT 199 10^3/uL (134-434); RBC 3.65 M/mm3 (4.00-5.60); RDW 13.5 % (11.9-15.9); WHITE BLOOD COUNT 4.3 K/mm3 (4.0-10.0)
[2023-08-18] MEDS ORDERED: VANCOMYCIN 1,000 MG in DEXTROSE 5%-WATER - 250 ML IVPB SCH (07:00)
[2023-08-18 07:03] LABS: CALCIUM 9.2 mg/dL (8.5-10.1)
[2023-08-18 07:04] LABS: BLOOD UREA NITROGEN 23.4 mg/dL (7-18)
[2023-08-18 07:07] LABS: CREATININE 0.6 mg/dL (0.55-1.3)
[2023-08-18] MEDS ORDERED: VANCOMYCIN 1 GRAM (PRE-DOCKED) 1,000 MG/250 ML BAG IVPB ONE (07:21)
[2023-08-18] MEDS: VANCOMYCIN/WATER FOR INJ (PEG) 1,000 MG/200 ML BAG IVPB SCH ×2 (08:00→11:46)
[2023-08-18] MEDS: ENOXAPARIN NA (PORCINE) 40 MG/0.4 ML DISP.SYRIN SQ SCH (09:45)
[2023-08-18] MEDS: LISINOPRIL 5 MG TABLET PO SCH (09:46)
[2023-08-18 10:16] VITALS: RESP 18
[2023-08-18] MEDS ORDERED: INSULIN ASPART SLIDING SCALE (NOVOLOG) 1 VIAL SQ ONE (12:13)
[2023-08-18] MEDS: CLINDAMYCIN 600MG PREMIX IVPB 600 MG/50 ML BAG IVPB SCH (12:18)
[2023-08-18] MEDS ORDERED: PATIENT'S OWN MEDICATION (NON-FORMULARY) (Lisinopril [Zestril] 2.5 MG Tablet) PO SCH (16:00)
[2023-08-18 17:09] VITALS: BMI 21.7
[2023-08-18] MEDS: metFORMIN HCL 500 MG TABLET (FP) PO SCH (17:23)
[2023-08-18] MEDS: ATORVASTATIN CA 80 MG TABLET (FP) PO SCH (23:13)
[2023-08-19 09:29] LABS: BASO % 0.4 % (0-2.0); HEMATOCRIT 34.3 % (35.4-49); HEMOGLOBIN 11.5 GM/dL (11.7-16.9); LYMPH % 33.8 % (8-40); MCH 29.2 pg (25.7-33.7); MCHC 33.4 g/dl (32.0-35.9); MEAN CELL VOLUME 87.6 fl (80-96); MEAN PLT VOLUME 9.6 fl (7.5-11.1); NEUT % 54.8 % (42.8-82.8); PLATELET COUNT 200 10^3/uL (134-434); RBC 3.92 M/mm3 (4.00-5.60); RDW 13.7 % (11.9-15.9); WHITE BLOOD COUNT 3.7 K/mm3 (4.0-10.0)
[2023-08-19 09:47] LABS: POTASSIUM 4.2 mmol/L (3.5-5.1)
[2023-08-19 09:55] LABS: ALBUMIN 3.3 g/dl (3.4-5.0); BLOOD UREA NITROGEN 23.2 mg/dL (7-18); CALCIUM 8.8 mg/dL (8.5-10.1)
[2023-08-19 09:57] LABS: BILIRUBIN,TOTAL 0.5 mg/dL (0.2-1); CREATININE 0.7 mg/dL (0.55-1.3); TOT PROT 6.7 g/dl (6.4-8.2)
[2023-08-19] MEDS: EMPAGLIFLOZIN (JARDIANCE) 25 MG TABLET PO SCH (12:15)
[2023-08-19 13:56] VITALS: BP 124/76; PULSE 77; TEMP 98.1
[2023-08-19] MEDS: LACTOBACILLUS ACIDOPHILUS 1 TABLET PO SCH (14:52)
[2023-08-19] MEDS ORDERED: CLINDAMYCIN HCL 150 MG CAPSULE (FP) PO SCH (20:00)
== END 2023-08-19 17:56 | disposition home or self-care (01) | DRG 380 ==
LOC: JER 16:26 → JERBED 19:10 → J5S 08-18 11:17
PROVIDERS: ADMIT Internal Medicine; ATTEND Internal Medicine
DX: E11.621 Type 2 diabetes mellitus with foot ulcer (principal); L97.428 Non-pressure chronic ulcer of left heel and midfoot with other specified severity; L03.116 Cellulitis of left lower limb; E11.65 Type 2 diabetes mellitus with hyperglycemia; I10 Essential (primary) hypertension; E78.5 Hyperlipidemia, unspecified
CPT/HCPCS: 36415; 73590-TC-LT-FY; 73610-TC-LT-FY; 73630-TC-LT; 80048; 80053; 82962; 83036; 83735; 85025; 85610; 85730; 87040; 87070; 87205; 93005; 93010; 99285-25